=== PATIENT | male | born 1975 | race Caucasian/White ===

== ENCOUNTER → 2018-08-22 | Day surgery (SDC) | payer BC ==
[~2018-08-22] MED LIST: FISH OIL 1,0001 EAC2 PO; LOVASTATIN20 MG PO; MIDAZOLAM HCL 2 MG/2 ML VIAL ONE; PANTOPRAZOLE SO40 MG PO; PAROXETINE HCL20 MG PO; PROPOFOL IV EMULSION 10 MG/ML 20 ML VIAL ONE; VIT D3 PO
[2018-08-22 10:00] VITALS: BP 117/91
--- NOTE | 2018-08-22 10:28 | Operative Report ---
DATE OF PROCEDURE: August 22, 2018 PROCEDURE PERFORMED: Esophagogastroduodenoscopy. PREOPERATIVE DIAGNOSIS: Epigastric and abdominal pain. POSTOPERATIVE DIAGNOSES 1. Hiatal hernia. 2. Reflux esophagitis. 3. Gastritis. PREOPERATIVE MEDICATIONS: Consisted of IV sedation administered under MAC anesthesia. Using the Olympus ClassifEye video gastroscope, it was inserted into the patient's oropharynx and advanced to the hypopharynx and down to the esophagus. The mucosa in the esophagus was normal until we reached the GE junction. Right there, we had a hiatal hernia, sliding type from 39-40 cm, and a little bit of reflux esophagitis just above that. Biopsy was obtained. The endoscope was inserted into the stomach, and gastritis was noted throughout the cardia, fundus, body, and antrum, but no evidence of erosions or ulcerations. A biopsy was obtained in the antrum and fundus looking for the H. pylori infection. The pylorus was visualized and entered. The duodenal bulb and postbulbar duodenum were found to be within normal limits. The endoscope was then withdrawn back up into the stomach and back up into the esophagus, hypopharynx, oropharynx, and the patient's mouth. The procedure was ended. In conclusion, we have findings of a hiatal hernia, reflux esophagitis and gastritis. Job#: [id number]
== END | disposition home or self-care (01) ==
LOC: OR 06:50
PROVIDERS: ATTEND Internal Medicine Gastroenterology
DX: K29.70 Gastritis, unspecified, without bleeding (principal); K21.0 Gastro-esophageal reflux disease with esophagitis; K44.9 Diaphragmatic hernia without obstruction or gangrene; E78.00 Pure hypercholesterolemia, unspecified; F41.9 Anxiety disorder, unspecified; Z01.810 Encounter for preprocedural cardiovascular examination
CPT/HCPCS: 43239; 93005; J2250

== ENCOUNTER → 2018-08-30 | Outpatient (CLI) | payer BC ==
[~2018-08-30] MED LIST changes: -MIDAZOLAM HCL 2 MG/2 ML VIAL ONE; -PROPOFOL IV EMULSION 10 MG/ML 20 ML VIAL ONE
--- NOTE | 2018-08-30 19:38 | Diagnostic Imaging Report ---
Hepatobiliary Scan with Gallbladder Ejection Fraction Clinical information: 43 M with chronic epigastric pain Technique: Following intravenous administration of 6.0 millicuries of Tc-99m mebrofenin, dynamic images of the abdomen in the anterior projection were obtained through 35 minutes. Sincalide (CCK analog) 1.7 micrograms was administered intravenously over 30 minutes with additional imaging for determination of gallbladder ejection fraction. Discussion: Perfusion of the liver is normal. Extraction of tracer by the liver parenchyma is normal. Tracer appears promptly within the biliary tract. The gallbladder begins to fill by 5 minutes post injection of tracer and fills adequately. Tracer is seen in the small bowel by 25 minutes. The gallbladder ejection fraction with sincalide is 18% (normal greater than 40%). Impression: 1. Filling of the gallbladder excludes acute cystic duct obstruction/acute cholecystitis. 2. The decreased gallbladder ejection fraction of 18% supports the clinical diagnosis of chronic cholecystitis/gallbladder dyskinesia. Signed by: Dr. Mamie Ibanez M.D. on 08/30/2018 7:34 PM
== END ==
LOC: NM 13:02
PROVIDERS: ATTEND Internal Medicine Gastroenterology
DX: R10.13 Epigastric pain (principal)
CPT/HCPCS: 78227; A9537

== ENCOUNTER → 2020-06-30 | Outpatient (CLI) | payer BC ==
--- NOTE | 2020-06-30 17:00 | Diagnostic Imaging Report ---
Exam: [id number] - 2 views Indication: Renal calculus Comparison: None Findings: No radiographically apparent urinary calculi. Small calcific densities in the pelvis, most likely phleboliths. Nonobstructive bowel gas pattern. No free air. Partially visualized lung bases are clear. No acute osseous injury. Impression: No radial graphically apparent urinary calculi. Small calcific densities in the pelvis most likely represent phleboliths. Signed by: Neel Bartlett MD on 06/30/2020 4:56 PM
== END ==
LOC: RAD 15:24
PROVIDERS: ATTEND Urology
DX: N20.0 Calculus of kidney (principal)
CPT/HCPCS: 74018